=== PATIENT | female | born 1955 | race Caucasian/White ===

== ENCOUNTER → 2018-05-12 | Emergency (ER) | payer OTHER ==
[~2018-05-12] VITALS: Ht 165.1 cm; Wt 83.5 kg
[~2018-05-12] MED LIST: SYNTHROID75 MCG PO; ZOCOR5 MG
== END | disposition left against medical advice (07) ==
LOC: ER 16:46
DX: Z53.20 Procedure and treatment not carried out because of patient's decision for unspecified reasons (principal)